=== PATIENT | male | born 1990 | race Caucasian/White ===

== ENCOUNTER 2019-02-20 23:32 | Inpatient (IN) | payer MEDICARE, MEDICAID ==
--- NOTE | 2019-02-20 23:52 | CT ---
CT head noncontrast HISTORY: Altered mental status. Stroke alert level 1. FINDINGS: A biconvex hyperdense fluid collection along the upper left lateral frontal calvarium measu res up to 0.9 cm depth. There is slight effacement of the underlying cerebral sulci. Mild diffuse sulcal effacement and effacement of the left lateral ventricle. No intraventricular hemorrhage is sanjiv dent. Visualized paranasal sinuses remain well aerated. IMPRESSION: Small acute left frontal subdural hematoma with mild diffuse cerebral edema. Findings were called to Dr. May in the emergency department at 2345 hours. Code CR.
[2019-02-21 00:10] LABS: #Basophils 0.1 thou/uL (0.0-0.2); #Eosinphils 0.4 thou/uL (0.0-0.7); #Lymphocytes 1.3 thou/uL (1.20-3.40); %Basophils 0.9 % (0.0-1.0); %Eosinophils 6.3 % (0.0-10.0); %Lymphocytes 19.3 % (21.0-51.0); %Monocytes 14.6 % (0.0-10.0); %Neutrophils 58.9 % (42.0-75.0); Hemoglobin 9.6 g/dL (14.0-18.0); Mean Corpuscular HGB CONC 33.2 g/dL (32.0-36.0); Mean Corpuscular Hemoglobin 31.2 pg (27.0-31.0); Mean Corpuscular Volume 94.1 fL (78.0-98.0); Mean Platelet Volume 8.2 fL (7.4-10.4); Platelet Count 152 thou/uL (130-400); RBC Distribution Width 14.3 % (11.5-14.5); Red Blood Cell (RBC) Count 3.06 mill/uL (4.70-6.10); White Blood Cell (WBC) Count 6.7 thou/uL (4.8-10.8)
[2019-02-21 00:19] LABS: INR-International Normal Ratio 1.2; PTT 32.7 SEC (22.9-36.1); Prothrombin Time 14.8 SEC (12.0-14.7)
[2019-02-21 00:32] LABS: ALT (SGPT) Less than 7 U/L (8-55); AST (SGOT) 8 U/L (5-34); Albumin 3.1 g/dL (3.5-5.0); Alkaline Phosphatase 53 U/L (40-110); Anion Gap 26 mmol/L (10-20); BUN (Urea Nitrogen) 112 mg/dL (8.9-20.6); Bilirubin, Total 0.4 mg/dL (0.2-1.2); CK (CPK) 119 U/L (30-200); Calc. Creatinine Clearance 0 mL/min (70-130); Calcium 7.6 mg/dL (7.8-10.44); Carbon Dioxide 22 mmol/L (22-29); Chloride 99 mmol/L (98-107); Estimated GFR-MDRD 3; Globulin 3.4 g/dL (2.4-3.5); Glucose 86 mg/dL (70-105); Protein, Total 6.5 g/dL (6.0-8.3); Sodium 142 mmol/L (136-145)
[2019-02-21] MEDS ORDERED: Labetalol HCl 100 MG/20 ML VIAL SLOW IVP SCH (01:00)
[2019-02-21] MEDS ORDERED: niCARdipine 25 MG in Sodium Chloride 0.9% 250 ML 240 ML IVPB SCH ×2 (01:00→02:48)
[2019-02-21] MEDS ORDERED: Bisacodyl 5 MG TAB PO PRN (02:57)
[2019-02-21] MEDS ORDERED: HYDROcodone/Acetaminophen 5/325 mg Tablet PO PRN (02:57)
[2019-02-21] MEDS ORDERED: Acetaminophen 325 MG TAB PO PRN (02:57)
[2019-02-21] MEDS ORDERED: Bisacodyl 10 MG SUPP PR PRN (02:57)
[2019-02-21 03:12] VITALS: BMI 27.1
[2019-02-21] MEDS ORDERED: CIPROFLOXACIN LACTATE IVPB SCH (04:00)
[2019-02-21] MEDS ORDERED: D5W IVPB SCH (04:00)
[2019-02-21 04:21] LABS: INR-International Normal Ratio 1.2; Prothrombin Time 15.1 SEC (12.0-14.7)
[2019-02-21 04:22] LABS: PTT 32.9 SEC (22.9-36.1)
--- NOTE | 2019-02-21 04:31 | PDOC.HHP ---
Hospitalist HPI - History of Present Illness Slurred speech, R sided weakness History of Present Illness: Patient is a 29 year old male with PMH of ESRD on peritoneal dialysis, recent tricuspid endocarditis completed ancef on who presents to hospital for acute right sided weakness and aphasia. patient father at beside reports symptoms began at 3pm w/ abnormal speech, jaw clenching and R sided weakness. He had TIA last year with different symptoms and recovered. he gets peritoneal dialysis, had recent dx of endocarditis (reportedy due to staph aureus) and has been in and out of many rehabs and hospitals lately, original treatment was at [facility] completed ancef on the , still has PICC in. 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 In ED, CT head revealed subdural hemorrhage, neurosurgery called and wanted admission for stroke workup and will follow in AM with repeat imaging. Hospitalist ROS - Review of Systems ROS unobtainable: due to mental status (altered, aphasic, non sensical speech) Hospitalist History - Past Medical History Other Medical History: ESRD IgA nephropathy peritoneal dialysis tricuspid endocarditis treated with ancef HTN - Past Surgical History Other Surgical History: PD cath - Family History Other Family History: reviewed, noncontributory - Social History Smoking Status: Never smoker Alcohol: reports: None Drugs: reports: none - Exam General Appearance: NAD, awake alert General - other findings: aphasic, nonsensical speech Eye: PERRL, anicteric sclera ENT: normocephalic atraumatic, moist mucosa ENT - other findings: slight R facial droop Neck: supple, no JVD Heart: RRR, no murmur, no gallops, no rubs Respiratory: CTAB, no wheezes, no rales, no ronchi Gastrointestinal: soft, non-tender, non-distended, normal bowel sounds Extremities: no cyanosis, no clubbing, no edema Skin: no lesions, no rashes Skin - other findings: PD cath and PICC in place with no erythema or edema at sites Neurological - other findings: R sided weakness and numbness, R facial droop, aphasia Psychiatric - other findings: unable to evaluate Hospitalist Results - Labs Result Diagrams: 02/20/19 00:00 02/20/19 00:00 Lab results: WBC 6.7 thou/uL (4.8-10.8) 02/20/19 00:00 Hgb 9.6 g/dL (14.0-18.0) L 02/20/19 00:00 Hct 28.8 % (42.0-52.0) L 02/20/19 00:00 MCV 94.1 fL (78.0-98.0) 02/20/19 00:00 Plt Count 152 thou/uL (130-400) 02/20/19 00:00 Neutrophils % 58.9 % (42.0-75.0) 02/20/19 00:00 Sodium 142 mmol/L (136-145) 02/20/19 00:00 Potassium 5.0 mmol/L (3.5-5.1) 02/20/19 00:00 Chloride 99 mmol/L (98-107) 02/20/19 00:00 Carbon Dioxide 22 mmol/L (22-29) 02/20/19 00:00 BUN 112 mg/dL (8.9-20.6) H 02/20/19 00:00 Creatinine 18.60 mg/dL (0.7-1.3) H 02/20/19 00:00 Glucose 86 mg/dL (70-105) 02/20/19 00:00 Calcium 7.6 mg/dL (7.8-10.44) L 02/20/19 00:00 Total Bilirubin 0.4 mg/dL (0.2-1.2) 02/20/19 00:00 AST 8 U/L (5-34) 02/20/19 00:00 ALT Less than 7 U/L (8-55) L 02/20/19 00:00 Alkaline Phosphatase 53 U/L (40-110) 02/20/19 00:00 Creatine Kinase 119 U/L (30-200) 02/20/19 00:00 Troponin I 0.022 ng/mL (< 0.028) 02/20/19 00:00 Serum Total Protein 6.5 g/dL (6.0-8.3) 02/20/19 00:00 Albumin 3.1 g/dL (3.5-5.0) L 02/20/19 00:00 Hospitalist H&P A/P - Plan Plan: Patient is a 29 year old male with PMH of ESRD on peritoneal dialysis, recent tricuspid endocarditis, HTN admitted for: # R sided weakness - has a subdural, neurosurgery consulted and unsure this is cause of sx, will look into infectious workup and neuologic workup and appreciate neurosurgery evaluation - admit to CCU - MRI brain - requested nurse call HD nurse to send some PD fluid for culture in AM - remove PICC and send tip for culture - follow up blood cultures, empiric vanc/cipro - appreciate consultants # ESRD on PD - normally in [place], does not live nearby - consult nephrology - rule out PD cath infection with fluid culture # subdural hematoma - treatment as above, serial imaging and NSG consult # HTN urgency - admit to CCU on nicardipine gtt, goal SBP 150 for first day thn perhaps can go even lower, consult critical care Dr Hernandez in AM
[2019-02-21 05:14] LABS: Cardiac Risk 3.7 (Less than 4.5)
[2019-02-21] MEDS ORDERED: Vancomycin HCl 1 GM in Premix Bag 1 BAG IVPB SCH ×2 (05:15→06:15)
[2019-02-21] MEDS ORDERED: Vancomycin HCl 750 MG in Sodium Chloride 0.9% 250 ML 250 ML IVPB SCH (06:15)
[2019-02-21] MEDS ORDERED: HOLD VANCOMYCIN FOR LEVEL >20 FS SCH (06:15)
[2019-02-21] MEDS ORDERED: Vancomycin Sliding Scale 1 EACH FS ONE (06:15)
[2019-02-21] MEDS ORDERED: Vancomycin HCl 1.25 GM in Sodium Chloride 0.9% 250 ML 250 ML IVPB SCH (06:15)
[2019-02-21] MEDS ORDERED: Vancomycin HCl 1.5 GM in Sodium Chloride 0.9% 250 ML 300 ML IVPB SCH (06:15)
[2019-02-21] MEDS ORDERED: cloNIDine 0.1 MG TAB PO PRN (07:10)
--- NOTE | 2019-02-21 08:07 | RAD ---
EXAM: Single view of the chest HISTORY: CVA and bilateral pneumonia COMPARISON: None FINDINGS: Single view of the chest shows an enlarged cardiomediastinal silhouette. A right IJ centra l venous catheter seen with its tip in the superior vena cava. Opacity seen in the right lung base which likely represents an infiltrate and adjacent pleural effusion. The bones are unremarkable. IMPRESSION: Right lower lobe pneumonia with adjacent pleural effusion.
[2019-02-21] MEDS: Montelukast Sodium 10 mg Tablet PO SCH (08:57)
[2019-02-21] MEDS: Metoprolol Tartrate 100 MG TAB PO SCH ×2 (08:57→20:07)
[2019-02-21] MEDS ORDERED: Non-Formulary Item 1 EACH (Sodium Bicarbonate [Sodium Bicarbonate] 650 MG) PO SCH (09:00)
[2019-02-21] MEDS ORDERED: LACTULOSE 10 GM/15 ML PO SCH (09:00)
[2019-02-21] MEDS ORDERED: Amlodipine 10 MG TAB PO SCH (09:00)
[2019-02-21] MEDS ORDERED: hydrALAZINE 25 MG TAB PO SCH ×2 (09:00)
[2019-02-21] MEDS ORDERED: NIFEdipine XL 30 MG TAB PO SCH ×2 (09:00)
[2019-02-21] MEDS ORDERED: Non-Formulary Item 1 EACH (Hydralazine Hcl [Hydralazine Hcl] 100 MG) PO SCH (09:00)
[2019-02-21] MEDS ORDERED: NIFEdipine XL 60 MG TAB PO SCH (09:00)
[2019-02-21] MEDS: Calcium Carbonate 600 MG TAB PO SCH (09:28)
[2019-02-21] MEDS: Docusate 100 MG CAP PO SCH ×2 (09:29→20:06)
--- NOTE | 2019-02-21 09:35 | MRI ---
PRELIMINARY REPORT/[facility]/EMERGENCY AFTER HOURS PROCEDURE: This report was discussed with Branden Amaya RN by Iqra Davila on Feb 21, 2019 06:06:00 FRAME CHANGER. Addendum electronically signed by Iqra Davila on February 21, 2019 6:06:33 AM FRAME CHANGER EXAM: MR Brain Without Intravenous Contrast. CLINICAL HISTORY: R/O STROKE. HX OF TIA TECHNIQUE: Magnetic resonance images of the brain without intravenous contrast in multiple planes. CONTRAST: Without COMPARISON: None provided. FINDINGS: BRAIN: There is acute left subdural hemorrhage measuring approximately 6 mm greatest in volume along the left posterior occipital convexity. Mild associated left parieto-occipital cerebral edema VENTRICLES: No hydrocephalus. ORBITS: The orbits are normal. SINUSES AND MASTOIDS: The sinuses and mastoid air cells are clear. BONES: No focal osseous lesion. IMPRESSION: 1. There is acute left subdural hemorrhage measuring approximately 6 mm greatest in volume along the left posterior occipital convexity. 2. Mild associated left parieto-occipital cerebral edema ELECTRONICALLY SIGNED BY: Edison Dillard M.D. Feb 21, 2019 5:56:41 AM FRAME CHANGER This report is intended for review by the ordering physician only, in accordance of law. If you recei ve this report in error, please call [facility] at [phone]. FINAL REPORT EMERGENCY AFTER HOURS MRI OF THE BRAIN WITHOUT CONTRAST: FINDINGS/IMPRESSION: I agree with the findings and impression given in the preliminary report per [facility] physici an. There is a small left parietal subdural hemorrhage, as above.
--- NOTE | 2019-02-21 09:38 | CON ---
DATE OF CONSULTATION: This is Lori Chamberlain PA-C dictating a report for Kayode Jackson MD. HISTORY OF PRESENT ILLNESS: The patient is a 29-year-old male with a complicated medical history including end-stage renal disease from a history of IgA nephropathy. On peritoneal dialysis, currently being treated for endocarditis with a PICC line, history of prior TIAs, who is currently in rehab after his treatments for endocarditis, who presented to the emergency department per EMS after developing some slurred speech and right-sided weakness. No history of trauma was reported. The patient had a noncontrast CT head on arrival, which was notable for a small left-sided parieto-occipital acute subdural hematoma with only mild mass effect. The patient is not on any anticoagulants and his platelets are normal at 152. His INR is 1.2. His PT is slightly elevated at 15.1. Neurosurgery was consulted for further evaluation of this acute subdural. This seemed to be a rather unusual course for the small subdural hematoma and considering his significant ongoing medical issues, we asked for additional medical evaluation and MRI of the brain. MRI of the brain was done, which showed again a left-sided acute subdural hematoma approximately 6 mm along the left posterior occipital region. There is mild parieto-occipital edema associated with subdural. No acute ischemic infarcts are noted. PAST MEDICAL HISTORY: End-stage renal disease, on peritoneal dialysis; IgM nephropathy; prior TIAs; CHF; endocarditis; and recent treatment for pneumonia. PAST SURGICAL HISTORY: Dialysis catheter. SOCIAL HISTORY: The patient currently resides at rehab. CURRENT ALLERGY LIST: Sulfa, penicillin, latex, and contrast dye. REVIEW OF SYSTEMS: Unobtainable. PHYSICAL EXAMINATION: VITAL SIGNS: The patient is afebrile. His most recent blood pressure is 157/94 , heart rate is 115, and the patient is 96% on room air. CONSTITUTIONAL: The patient is resting on arrival to the ICU. He awakens easily. He is able to tell me his name and location. HEENT: Eyes; PERRLA. Extraocular movements intact. ENT; oral mucosa is pink, intact, and moist. He has somewhat slurred speech, dysarthria. NECK: Nontender to palpation. Free active range of motion. RESPIRATORY: Symmetric chest expansion. No evidence of dyspnea. CARDIOVASCULAR: Mildly tachycardic, but regular rhythm. MUSCULOSKELETAL: No obvious deformities. Symmetric pulses. He appears to have subtle decreased strength in the right upper and lower extremity. NEUROLOGIC: Oriented to person and place. His speech is slurred. He has some subtle weakness in the right upper and right lower extremity. Some intermittent twitching is in the right hand, this was also seen. ASSESSMENT AND PLAN: This is a 29-year-old male with a complicated medical history, who presents for new and worsening speech dysarthria as well as some right-sided weakness, then occasional intermittent hand twitching with noncontrast CT and MRI is notable for acute left parieto-occipital subdural hematoma. The acute subdural hematoma is small, but is there is some surrounding vasogenic edema, which may be contributing to the patient's condition. He is also noted to have some intermittent twitching per the ER nursing staff of the right hand, which may suggest intermittent focal seizures. I will consult neurology for an opinion. I will discuss the imaging findings as well as exam findings with Dr. Jackson, who will also see the patient this morning. Job ID: [id number] [facility]
[2019-02-21] MEDS: Sodium Bicarbonate Tab 325 MG TAB PO SCH ×2 (09:41→20:07)
[2019-02-21] MEDS: Polyethylene Glycol 3350 17 GM Packet PO SCH (09:41)
[2019-02-21] MEDS: Tamsulosin HCl 0.4 MG CAP PO SCH (09:41)
--- NOTE | 2019-02-21 10:45 | PDOC.HOSPP ---
- Subjective Encounter Date: 02/21/19 Encounter Time: 10:30 Subjective: pt has focal seizure, father bedside, able to provide history - Objective Vital Signs & Weight: Vital Signs (12 hours) Temp Pulse Ox 02/21/19 08:00 95 02/21/19 07:00 98.6 F 02/21/19 05:00 97.9 F 02/21/19 03:00 98.8 F Weight Weight 229 lb 4.492 oz Most Recent Monitor Data Heart Rate from ECG 76 NIBP 160/103 NIBP BP-Mean 122 Respiration from ECG 16 SpO2 94 I&O: 02/20/19 02/21/19 02/22/19 06:59 06:59 06:59 Intake Total 579 245 Output Total 0 Balance 579 245 Result Diagrams: 02/20/19 00:00 02/20/19 00:00 Additional Labs: Accuchecks 02/20/19 23:42 POC Glucose 105 Radiology Reviewed by me: Yes EKG Reviewed by me: Yes Hospitalist ROS - Review of Systems Constitutional: denies: fever, chills, sweats, weakness, malaise, other ENT: denies: ear pain, ear discharge, nose pain, nose discharge, nose congestion , mouth pain, mouth swelling, throat pain, throat swelling, other Respiratory: denies: cough, dry, shortness of breath, hemoptysis, SOB with excertion, pleuritic pain, sputum, wheezing, other Cardiovascular: denies: chest pain, palpitations, orthopnea, paroxysmal noc. dyspnea, edema, light headedness, other Gastrointestinal: denies: nausea, vomiting, abdominal pain, diarrhea, constipation, melena, hematochezia, other Genitourinary: denies: dysuria, frequency, incontinence, hematuria, retention, other Musculoskeletal: denies: neck pain, shoulder pain, arm pain, back pain, hand pain, leg pain, foot pain, other Skin: denies: rash, lesions, brayan, bruising, other Neurological: reports: weakness, change in speech, seizures. denies: numbness, incoordination, confusion, other - Medication Medications: Active Medications Generic Name Dose Route Start Last Admin Trade Name Freq PRN Reason Stop Dose Admin Calcium Carbonate 600 mg 02/21/19 09:00 02/21/19 09:28 Caltrate PO Not Given DAILY MIO Docusate Sodium 100 mg 02/21/19 09:00 02/21/19 09:29 Colace PO Not Given BID [facility] Hydralazine HCl 50 mg 02/21/19 09:00 02/21/19 09:29 Apresoline PO Not Given TID [facility] Nicardipine HCl 25 mg/ Sodium 250 mls @ 0 mls/hr 02/21/19 02:48 02/21/19 06: 00 Chloride IVPB 250 mls INF MIO Administration Protocol Titrate Levetiracetam 500 mg/ Device 100 mls @ 200 mls/hr 02/21/19 09:00 02/21/19 08: 36 IVPB 100 mls BID MIO Administration Lactulose 10 gm 02/21/19 09:00 02/21/19 09:33 Lactulose PO Not Given DAILY [facility] Metoprolol Tartrate 100 mg 02/21/19 09:00 02/21/19 08:57 Lopressor PO 100 mg BID MIO Administration Montelukast Sodium 10 mg 02/21/19 09:00 02/21/19 08:57 Singulair PO 10 mg DAILY MIO Administration Nifedipine 60 mg 02/21/19 09:00 02/21/19 09:34 Procardia Xl PO 60 mg DAILY MIO Administration Nifedipine 30 mg 02/21/19 09:00 02/21/19 09:34 Procardia Xl PO 02/21/19 11:00 30 mg NOW [facility] Administration Polyethylene Glycol 17 gm 02/21/19 09:00 02/21/19 09:41 Miralax PO Not Given DAILY [facility] Sertraline HCl 100 mg 02/21/19 09:00 02/21/19 08:58 Zoloft PO 100 mg DAILY [facility] Administration Sodium Bicarbonate 650 mg 02/21/19 09:00 02/21/19 09:41 Bicarbonate, Sodium PO Not Given BID [facility] Tamsulosin HCl 0.8 mg 02/21/19 09:00 02/21/19 09:41 Flomax PO Not Given DAILY [facility] - Exam General Appearance: NAD, awake alert Eye: PERRL, anicteric sclera ENT: normocephalic atraumatic, no oropharyngeal lesions Neck: supple, symmetric, no JVD, no thyromegaly Heart: RRR, no murmur, no gallops, no rubs Respiratory: CTAB, no wheezes, no rales, no ronchi Gastrointestinal: soft, non-tender, non-distended, normal bowel sounds Gastrointestinal - other findings: PD catheter + Extremities: no cyanosis, no clubbing, 2+ LE edema Skin: normal turgor, no lesions Neurological - other findings: weakness on right side, focal seizure Hosp A/P (1) Encephalopathy acute Code(s): G93.40 - ENCEPHALOPATHY, UNSPECIFIED Status: Acute (2) Focal seizures Status: Acute (3) Subdural hematoma Code(s): S06.5X9A - TRAUM SUBDR HEM W LOC OF UNSP DURATION, INIT Status: Acute Plan: left subdural hematolma (4) Cerebral edema Code(s): G93.6 - CEREBRAL EDEMA Status: Acute Plan: left parietooccipital edema, mild (5) ESRD on peritoneal dialysis Code(s): N18.6 - END STAGE RENAL DISEASE; Z99.2 - DEPENDENCE ON RENAL DIALYSIS Status: Chronic (6) IgM nephropathy Code(s): N05.8 - UNSP NEPHRITIC SYNDROME WITH OTHER MORPHOLOGIC CHANGES Status : Chronic (7) H/O endocarditis Code(s): Z86.79 - PERSONAL HISTORY OF OTHER DISEASES OF THE CIRCULATORY SYSTEM Status: Chronic (8) Anemia of renal disease Code(s): N18.9 - CHRONIC KIDNEY DISEASE, UNSPECIFIED; D63.1 - ANEMIA IN CHRONIC KIDNEY DISEASE Status: Chronic (9) Secondary hyperparathyroidism of renal origin Code(s): N25.81 - SECONDARY HYPERPARATHYROIDISM OF RENAL ORIGIN Status: Chronic (10) Anxiety and depression Code(s): F41.9 - ANXIETY DISORDER, UNSPECIFIED; F32.9 - MAJOR DEPRESSIVE DISORDER, SINGLE EPISODE, UNSPECIFIED Status: Chronic - Plan old records reviewed/req, plan discussed w/ family 02/21/19 neurology and neurosurgery consulted nephrology consulted his home medication reconciled updated with father medication reviewed and continue to provide supportive care DC antibiotic for now get echo follow on culture result will get eeg
--- NOTE | 2019-02-21 10:48 | CON ---
DATE OF CONSULTATION: 02/21/2019 The patient was seen and examined, I agree with Lori Chamberlain's evaluation on 02/21/2019. The patient is a 29-year-old man with end-stage renal disease, a history of prior endocarditis and TIAs, who presented with 24 hours of slurred speech and right arm twitching. CT and MRI have not revealed definitive pathology, but do reveal a small left acute subdural. The patient's slurred speech seems to be improving and the degree of twitching has diminished significantly on Keppra. IMPRESSION AND PLAN: The overall etiology of the patient's new symptoms is unclear. He does have a new subdural hematoma, but is quite tiny and does not warrant surgical evacuation. The MRI was not done with contrast, so there remains a possibility that this could represent empyema, but this seems very unlikely in this clinical setting given his recent improvement. It is possible that all of his symptoms are postictal referable to seizure activity. We will get an opinion from Neurology and continue to treat expectantly. Discussed with the patient and father. Job ID: [id number]
--- NOTE | 2019-02-21 11:46 | CON ---
DATE OF CONSULTATION: 02/21/2019 CONSULTING PHYSICIAN: Hospitalist Service. IMPRESSION: Acute left subdural hematoma with some secondary cortical edema versus ischemia. PLAN: 1. Continue current blood pressure management. 2. Echocardiogram. HISTORY OF PRESENT ILLNESS: Mr. Orozco is a 29-year-old man with a past history of renal failure, on peritoneal dialysis. He recently had tricuspid endocarditis and completed a 6-week antibiotic regimen. Two days ago, he presented with acute onset of right-sided weakness and speech difficulty. He has been witnessed to have some focal seizure activity on the right side. He has been started on Keppra. His MRI of the brain showed a 6-mm subdural hematoma. Neurosurgery did not feel it warranted surgical intervention. He still is complaining of difficulty with speech output and right-sided weakness. He was on a Cardene drip transiently, but now is off it. His diastolics are running in the mid 90s. He has no other particular complaints. PAST MEDICAL HISTORY: As listed above. ALLERGIES: IODINE, ASPIRIN, PENICILLIN, SULFA, AMONG OTHERS. FAMILY HISTORY: Noncontributory. SOCIAL HISTORY: Negative for drug use. MEDICATIONS: List reviewed. REVIEW OF SYSTEMS: Ten-system review of systems is otherwise negative. PHYSICAL EXAMINATION: GENERAL: He is a well-nourished young man, lying in bed, in no acute distress. VITAL SIGNS: Blood pressure 164/96; pulse 75, in a sinus rhythm; saturations 97%; and respirations 10. HEENT: Pupils are equal and reactive. Conjunctivae are clear. Oropharynx clear. NECK: Supple. EXTREMITIES: No cyanosis or edema. NEUROLOGIC: He was alert and cooperative. His speech was clear, but had a pausing quality between words. Cranial nerve exam did not show any facial asymmetry or sensory loss. He had diminished strength at the right arm and hand. He had antigravity strength in the right leg. Sensation was intact. Gait was not tested. No abnormal movements were seen. SUMMARY: A 29-year-old man with acute subdural hematoma and diffuse abnormal diffusion in the left parietal region as well. He has had some secondary seizures. I agree with continuing Keppra given the hemorrhage. He is not a candidate for any type of antiplatelet therapy. Hopefully, things will settle down with time. Job ID: [id number]
[2019-02-21] MEDS ORDERED: Desmopressin Acetate 4 mcg/ml (1ml Chg) 10ml Vial SC SCH (12:30)
[2019-02-21] MEDS: Labetalol HCl 100 MG/20 ML VIAL SLOW IVP PRN ×2 (13:48→20:53)
[2019-02-21] MEDS: hydrALAZINE 25 MG TAB PO SCH ×2 (15:32→20:06)
--- NOTE | 2019-02-21 17:24 | CON ---
DATE OF CONSULTATION: 02/21/2019 SERVICE: Pulmonary Medicine. REASON FOR CONSULTATION: ICU patient. HISTORY OF PRESENT ILLNESS: The patient is a 29-year-old white male with past medical history significant for end-stage renal disease secondary to IgA nephropathy. He was in his usual state of health when he had an abrupt onset of neurologic changes that was discovered to represent a subdural hematoma with compression of the appose parietal brain. He is being watched in the ICU, so that we can monitor his neurologic status closely. He denies any current fevers, chills, nausea, or vomiting. There is no precipitating event here otherwise. Recently , he had a bout of endocarditis. He has actually completed his antibiotics based on his recollection. He denies any fevers, chills, nausea, vomiting, or diarrhea. Otherwise, he is in his usual state of health. He is a little bit sleepy today. PHYSICAL EXAMINATION: VITAL SIGNS: Afebrile, pulse 74, blood pressure 145/83, respirations 18, and saturation 94% on room air. GENERAL: The patient is awake and alert, in no apparent distress LUNGS: Very good air entry. No prolonged expiratory phase or wheezing is appreciated. HEART: Normal rate. Regular. ABDOMEN: Soft, nontender, and nondistended. Bowel sounds are positive. MUSCULOSKELETAL: No cyanosis or clubbing. There is 1 to 2+ pitting in the bilateral lower extremities. NEUROLOGIC: He has a little somnolence. He has weakness of the right upper extremity, but moves his bilateral lower extremities, and left upper extremity without difficulty. Speech is normal. LABORATORY DATA: WBC 6.7, hemoglobin 9.6, and platelets 152,000. INR 1.2. BUN 112. Basic metabolic profile is otherwise unremarkable. Liver function studies are normal. Troponin is negative. IMAGIN. Chest x-ray demonstrates a right lower lobe pleural-parenchymal abnormality. 2. CT brain demonstrates a subdural hematoma. 3. MRI confirms an acute subdural hematoma, with mass effect on the temporoparietal region. ASSESSMENT: 1. Subdural hematoma. 2. End-stage renal disease secondary to IgA nephropathy. 3. Abnormal chest x-ray. DISCUSSION AND PLAN: I will repeat a chest x-ray tomorrow morning. We will continue neuro checks frequently. If these remain stable, he can be considered for transition out of the ICU to the neuro unit. Because of his elevated BUN, I will give him a dose of DDAVP. Critical Care will follow in this location. 70 minutes have been devoted to this patient in various activities. I personally reviewed all imaging studies and laboratory data noted within this document. For fifty percent of this time, I was interacting with the patient at the bedside or coordinating care with the care team. For the remainder of the time I was immediately available to the patient in the hospital unit. Job ID: [id number] [facility]
[2019-02-21 19:45] LABS: RBC Count-Automated (BF) 543 /cumm; WBC/Nucleated-Auto (BF) 314 uL
[2019-02-21 20:04] LABS: BF Color Yellow; Body Fluid Source Peritoneal Fluid; Clarity Hazy (Clear); Tube # EDTA
[2019-02-21] MEDS: Atorvastatin Calcium 40 MG TAB PO SCH (20:06)
[2019-02-21 20:08] LABS: BF Segmented Neutrophils 5 %; Cell Count Non Hematic 55 %; Eosinophils 1 %; Lymphocytes 39 %
[2019-02-22] MEDS: Labetalol HCl 100 MG/20 ML VIAL SLOW IVP PRN ×2 (00:56→04:31)
[2019-02-22] MEDS: hydrALAZINE 20 MG/ML VIAL SLOW IVP PRN (01:03)
[2019-02-22] MEDS: cloNIDine 0.1 MG TAB PO PRN ×3 (01:04→22:33)
[2019-02-22 05:08] LABS: #Eosinphils 0.4 thou/uL (0.0-0.7); #Lymphocytes 1.1 thou/uL (1.20-3.40); #Monocytes 0.8 thou/uL (0.11-0.59); #Neutrophils 4.1 thou/uL (1.40-6.50); %Basophils 0.6 % (0.0-1.0); %Eosinophils 5.7 % (0.0-10.0); %Lymphocytes 16.6 % (21.0-51.0); %Monocytes 13.2 % (0.0-10.0); %Neutrophils 63.9 % (42.0-75.0); Hemoglobin 8.4 g/dL (14.0-18.0); Mean Corpuscular Hemoglobin 31.1 pg (27.0-31.0); Mean Corpuscular Volume 94.3 fL (78.0-98.0); Mean Platelet Volume 7.9 fL (7.4-10.4); Platelet Count 149 thou/uL (130-400); RBC Distribution Width 14.3 % (11.5-14.5); White Blood Cell (WBC) Count 6.4 thou/uL (4.8-10.8)
[2019-02-22 05:19] LABS: ALT (SGPT) Less than 7 U/L (8-55); AST (SGOT) 7 U/L (5-34); Albumin 2.8 g/dL (3.5-5.0); Alkaline Phosphatase 44 U/L (40-110); Anion Gap 26 mmol/L (10-20); BUN (Urea Nitrogen) 115 mg/dL (8.9-20.6); Bilirubin, Total 0.5 mg/dL (0.2-1.2); Calc. Creatinine Clearance 9 mL/min (70-130); Calcium 7.2 mg/dL (7.8-10.44); Carbon Dioxide 21 mmol/L (22-29); Chloride 101 mmol/L (98-107); Estimated GFR-MDRD 3; Globulin 3.1 g/dL (2.4-3.5); Glucose 93 mg/dL (70-105); Potassium 4.5 mmol/L (3.5-5.1); Protein, Total 5.9 g/dL (6.0-8.3); Sodium 143 mmol/L (136-145)
[2019-02-22 05:20] LABS: Phosphorus 14.6 mg/dL (2.3-4.7)
[2019-02-22 08:10] LABS: Iron 96 ug/dL (65-175); Iron Binding Capacity, Total 174 mcg/dL (261-462)
[2019-02-22] MEDS: Calcium Carbonate 600 MG TAB PO SCH (09:11)
[2019-02-22] MEDS: Calcium Acetate 667 MG CAP PO SCH ×3 (09:11→17:00)
[2019-02-22] MEDS: hydrALAZINE 25 MG TAB PO SCH ×3 (09:12→20:54)
[2019-02-22] MEDS: Docusate 100 MG CAP PO SCH ×2 (09:12→20:54)
[2019-02-22] MEDS: Polyethylene Glycol 3350 17 GM Packet PO SCH (09:13)
[2019-02-22] MEDS: Metoprolol Tartrate 100 MG TAB PO SCH ×2 (09:13→20:54)
[2019-02-22] MEDS: Tamsulosin HCl 0.4 MG CAP PO SCH (09:13)
[2019-02-22] MEDS: Montelukast Sodium 10 mg Tablet PO SCH (09:13)
[2019-02-22] MEDS: Sodium Bicarbonate Tab 325 MG TAB PO SCH ×2 (09:17→20:53)
--- NOTE | 2019-02-22 09:29 | PRG ---
DATE OF SERVICE: 02/22/2019 SUBJECTIVE: The patient is seen and examined yesterday for acute left subdural hematoma and likely underlying seizure activity. He was treated with Keppra, and he is significantly improved today. The patient has had no overnight events. He did have an MRI, which confirmed a small underlying left subdural hematoma. OBJECTIVE: On exam, the patient is awake, alert, oriented x3. He has free active range of motion of all extremities. No focal motor weakness or neurologic deficits are appreciated. He is no longer having any twitching activity. ASSESSMENT AND PLAN: The patient is significantly improved following the addition of seizure medications. We have no plans for acute surgical intervention for the small subdural hematoma. At this point, the patient appears appropriate for transition to the floor. We will plan to follow up with the patient in approximately 4 weeks in the outpatient setting. Job ID: [id number]
--- NOTE | 2019-02-22 09:54 | PRG ---
DATE OF SERVICE: 02/22/2019 SUBJECTIVE: A 29-year-old male with known history of end-stage renal disease secondary to IgA nephropathy, who was admitted due to acute onset of slurred speech, expressive aphasia, and right arm weakness. Nephrology is following patient for end-stage renal disease management. The patient was found to have subdural hematoma as well as cerebral edema and seizure, hence was started on Keppra. Expressive aphasia and involuntary movement of right upper extremity have improved. He, however, complains of numbness of right hand. He denied nausea, vomiting, headache, or shortness of breath. Bilateral leg edema has improved with peritoneal dialysis last night. OBJECTIVE: VITAL SIGNS: Temperature 98.3, pulse 81, respiratory rate 11, SpO2 97 on room air, blood pressure is 155/105. GENERAL: Young male, in no distress. Afebrile. Anicteric. Acyanotic. HEENT: Normocephalic and atraumatic. Oral mucosa is moist. CARDIOVASCULAR: Regular rhythm and rate with normal heart sounds 1 and 2. RESPIRATORY: Good air entry bilaterally with few transmitted breath sounds, but no obvious crackles or rhonchi or use of accessory muscles. GI: Full, soft, nontender, nondistended with normal bowel sounds. PD catheter noted. EXTREMITIES: Trace bilateral leg edema noted. No erythema appreciated. MANAGER OF BUSINESS: Conscious and alert oriented x3 with appropriate mental status. Cranial nerves 2 through 12 are grossly intact. The patient moves all extremities. Some subjective decreased sensation of right upper limb noted. Power is grossly normal and symmetric. LABORATORY DATA: CBC showed WBC count of 6.4, hemoglobin of 8.4, MCV of 94.3, platelets of 149. Renal, CMP showed sodium 143, potassium 4.5, chloride 101, CO2 21, BUN 115, creatinine 18.56, calcium 7.2. Total bilirubin 0.5, AST 7, ALT less than 7, total protein 5.9, albumin 2.8, globulin 3.1. Phosphorus is 14.6. PTH intact is 365. 25-vitamin D is 14.9. Iron chemistry showed iron 96, TIBC 174, saturation 55, and ferritin 415. ASSESSMENT: 1. End-stage renal disease, on peritoneal dialysis. The patient clearly is under dialyzed with marked azotemia with BUN of 115 and creatinine of 18. Subdural hematoma and cerebellar edema may be related to uremic coagulopathy. The patient received DDAVP yesterday. 2. Marked azotemia/uremia. 3. Anemia in chronic kidney disease. 4. Vitamin D deficiency. 5. Secondary hyperparathyroidism. 6. Hyperphosphatemia, most likely due to dietary indiscretion, inadequate dialysis, and maybe noncompliance with phosphate binder. 7. Subdural hematoma. Etiology is unclear. There is no overt trauma. Uremic encephalopathy may be contributory. 8. Partial seizures, most likely related to cerebral edema and subdural hematoma. PLAN: 1. We will provide continuous peritoneal dialysis treatment today with a view to improving clearance. However, if this failed to improve clearance, we may have to reset to hemodialysis. 2. We will increase nifedipine to 90 mg p.o. daily to get better blood pressure control. 3. We will start erythrocyte stimulating agent as patient has anemia in chronic kidney disease and there is no overt iron deficiency. 4. We will also start vitamin D supplementation and Sensipar. 5. Phosphate binder and Renvela will be commenced as well. 6. Keppra has been dosed renally. Many thanks. We will continue to follow along with you. I have discussed extensively with this patient on need to do continuous peritoneal dialysis today and he verbalized understanding and is in agreement. The patient can be moved out of the ICU from Nephrology point of view. Job ID: [id number]
--- NOTE | 2019-02-22 11:58 | PRG ---
DATE OF SERVICE: 02/22/2019 SERVICE: Pulmonary Medicine. INTERVAL HISTORY: The patient is doing really well from respiratory standpoint. His right upper extremity neurologic changes have improved dramatically. He is able to open and close his hand well. His sensation is still lacking, however. Otherwise, there has been no interval change to his condition. PHYSICAL EXAMINATION: VITAL SIGNS: Afebrile; pulse 77; blood pressure 162/106; respirations 14; and saturation 98%, currently on room air. GENERAL: The patient is awake and alert, in no apparent distress. LUNGS: Very good air entry. Dependent crackles are noted. HEART: Normal rate and regular. ABDOMEN: Soft, nontender, nondistended. Bowel sounds are positive. MUSCULOSKELETAL: No cyanosis or clubbing. There is trace to 1+ pitting in the bilateral lower extremities. NEUROLOGIC: Grossly nonfocal. LABORATORY DATA: WBC 6.4, hemoglobin 8.4, platelets 149,000. INR 1.2. Parathyroid hormone 365, vitamin D 14. Ferritin 415, iron 96, total iron-binding capacity is reduced. Phosphorus 14.6. BUN and creatinine remain extremely elevated. Anion gap 26, bicarb 21. Liver function studies are otherwise unremarkable. Peritoneal fluid has very few neutrophils. Blood cultures negative x1. Body fluid cultures negative to date. ASSESSMENT: 1. Subdural hematoma. 2. End-stage renal disease secondary to IgA nephropathy. 3. Abnormal chest x-ray. DISCUSSION AND PLAN: The patient is on continuous peritoneal dialysis and cannot go down for a two-view chest x-ray until this has been completed. We will postpone the two-view chest x-ray until tomorrow morning. Pulmonary will continue to follow for the time being. Job ID: [id number]
--- NOTE | 2019-02-22 12:34 | PDOC.HOSPP ---
- Subjective Encounter Date: 02/22/19 Encounter Time: 11:00 Subjective: Patient seen and examined. No new complaints. No overnight events - Objective Vital Signs & Weight: Vital Signs (12 hours) Temp Pulse BP Pulse Ox 02/22/19 09:12 173/109 H 02/22/19 07:57 97 02/22/19 07:07 173/109 H 02/22/19 07:00 98.3 F 02/22/19 04:31 164/105 H 02/22/19 04:00 98.4 F 02/22/19 01:04 164/105 H 02/22/19 01:03 78 164/105 H Weight Admit Weight 229 lb 4.492 oz Weight 229 lb 4.492 oz Most Recent Monitor Data Heart Rate from ECG 78 NIBP 145/96 NIBP BP-Mean 112 Respiration from ECG 2 SpO2 95 I&O: 02/21/19 02/22/19 02/23/19 06:59 06:59 06:59 Intake Total 579 630 235 Output Total 0 450 Balance 579 180 235 Result Diagrams: 02/22/19 04:39 02/22/19 04:39 Radiology Reviewed by me: Yes EKG Reviewed by me: Yes Hospitalist ROS - Review of Systems Constitutional: denies: fever, chills, sweats, weakness, malaise, other Eyes: denies: pain, vision change, conjunctivae inflammation, eyelid inflammation, redness, other ENT: denies: ear pain, ear discharge, nose pain, nose discharge, nose congestion , mouth pain, mouth swelling, throat pain, throat swelling, other Respiratory: denies: cough, dry, shortness of breath, hemoptysis, SOB with excertion, pleuritic pain, sputum, wheezing, other Cardiovascular: denies: chest pain, palpitations, orthopnea, paroxysmal noc. dyspnea, edema, light headedness, other Gastrointestinal: denies: nausea, vomiting, abdominal pain, diarrhea, constipation, melena, hematochezia, other Genitourinary: denies: dysuria, frequency, incontinence, hematuria, retention, other Musculoskeletal: denies: neck pain, shoulder pain, arm pain, back pain, hand pain, leg pain, foot pain, other - Medication Medications: Active Medications Generic Name Dose Route Start Last Admin Trade Name Freq PRN Reason Stop Dose Admin Atorvastatin Calcium 40 mg 02/21/19:00 02/21/19 20:06 Lipitor PO 40 mg HS MIO Administration Calcium Acetate 1,334 mg 02/22/19 08:00 02/22/19 12:15 Phoslo PO 1,334 mg TID-WM MOI Administration Calcium Carbonate 600 mg 02/21/19 09:00 02/22/19 09:11 Caltrate PO 600 mg DAILY MIO Administration Clonidine 0.1 mg 02/21/19 23:00 02/22/19 07:07 Catapres PO 0.1 mg TIDPRN PRN Administration TO KEEP SBP < 150 Docusate Sodium 100 mg 02/21/19 09:00 02/22/19 09:12 Colace PO 100 mg BID MIO Administration Hydralazine HCl 20 mg 02/21/19 12:24 02/22/19 01:03 Apresoline SLOW IVP 20 mg Q15MIN PRN Administration Sbp Greater Than 150 Hydralazine HCl 75 mg 02/21/19 15:00 02/22/19 09:12 Apresoline PO 75 mg TID MIO Administration Levetiracetam 500 mg/ Device 100 mls @ 200 mls/hr 02/22/19 09:00 02/22/19 09: 14 IVPB 100 mls DAILY MIO Administration Labetalol HCl 20 mg 02/21/19 12:24 02/22/19 04:31 Normodyne SLOW IVP 20 mg Q15MIN PRN Administration Sbp Greater Than 150 Lactulose 10 gm 02/21/19 09:00 02/22/19 09:13 Lactulose PO Not Given DAILY MIO Metoprolol Tartrate 100 mg 02/21/19 09:00 02/22/19 09:13 Lopressor PO 100 mg BID MIO Administration Montelukast Sodium 10 mg 02/21/19 09:00 02/22/19 09:13 Singulair PO 10 mg DAILY MIO Administration Polyethylene Glycol 17 gm 02/21/19 09:00 02/22/19 09:13 Miralax PO Not Given DAILY MIO Sertraline HCl 100 mg 02/21/19 09:00 02/22/19 09:12 Zoloft PO 100 mg DAILY MIO Administration Sodium Bicarbonate 650 mg 02/21/19 09:00 02/22/19 09:17 Bicarbonate, Sodium PO 650 mg BID MIO Administration Tamsulosin HCl 0.8 mg 02/21/19 09:00 02/22/19 09:13 Flomax PO 0.8 mg DAILY MIO Administration - Exam General Appearance: NAD, awake alert Eye: PERRL, anicteric sclera ENT: normocephalic atraumatic, no oropharyngeal lesions Neck: supple, symmetric, no JVD, no thyromegaly Heart: RRR, no murmur, no gallops, no rubs Respiratory: CTAB, no wheezes, no rales, no ronchi Gastrointestinal: soft, non-tender, non-distended, normal bowel sounds, no palpable masses Extremities: no cyanosis, no clubbing, 1+ LE edema Skin: normal turgor, no lesions Neurological: no focal deficits Musculoskeletal: normal tone, normal strength Psychiatric: normal affect, normal behavior, A&O x 3 Hosp A/P (1) Encephalopathy acute Code(s): G93.40 - ENCEPHALOPATHY, UNSPECIFIED Status: Acute (2) Focal seizures Status: Acute (3) Subdural hematoma Code(s): S06.5X9A - TRAUM SUBDR HEM W LOC OF UNSP DURATION, INIT Status: Acute (4) Cerebral edema Code(s): G93.6 - CEREBRAL EDEMA Status: Acute (5) ESRD on peritoneal dialysis Code(s): N18.6 - END STAGE RENAL DISEASE; Z99.2 - DEPENDENCE ON RENAL DIALYSIS Status: Chronic (6) IgM nephropathy Code(s): N05.8 - UNSP NEPHRITIC SYNDROME WITH OTHER MORPHOLOGIC CHANGES Status : Chronic (7) H/O endocarditis Code(s): Z86.79 - PERSONAL HISTORY OF OTHER DISEASES OF THE CIRCULATORY SYSTEM Status: Chronic (8) Anemia of renal disease Code(s): N18.9 - CHRONIC KIDNEY DISEASE, UNSPECIFIED; D63.1 - ANEMIA IN CHRONIC KIDNEY DISEASE Status: Chronic (9) Secondary hyperparathyroidism of renal origin Code(s): N25.81 - SECONDARY HYPERPARATHYROIDISM OF RENAL ORIGIN Status: Chronic (10) Anxiety and depression Code(s): F41.9 - ANXIETY DISORDER, UNSPECIFIED; F32.9 - MAJOR DEPRESSIVE DISORDER, SINGLE EPISODE, UNSPECIFIED Status: Chronic - Plan old records reviewed/req 02/21/19 neurology and neurosurgery consulted nephrology consulted his home medication reconciled updated with father medication reviewed and continue to provide supportive care DC antibiotic for now get echo follow on culture result will get eeg 02/22/19 transfer to stroke floor neurology and neurosurgery recommendation noted overall stable continue PD as per nephrology jose galloway
[2019-02-22] MEDS ORDERED: Sevelamer Carbonate 800 MG TAB PO SCH (17:45)
[2019-02-22] MEDS ORDERED: NIFEdipine XL 30 MG TAB PO SCH (17:45)
[2019-02-22] MEDS: ALPRAZolam 0.25 MG TAB PO PRN (20:53)
[2019-02-22] MEDS: Atorvastatin Calcium 40 MG TAB PO SCH (20:54)
[2019-02-23] MEDS: hydrALAZINE 20 MG/ML VIAL SLOW IVP PRN ×5 (00:23→11:24)
[2019-02-23] MEDS: Labetalol HCl 100 MG/20 ML VIAL SLOW IVP PRN ×6 (01:13→10:02)
[2019-02-23] MEDS: cloNIDine 0.2 MG TAB PO PRN ×2 (04:28→15:30)
[2019-02-23] MEDS ORDERED: Labetalol 100 MG TAB PO SCH ×3 (06:00→13:30)
[2019-02-23 06:24] LABS: #Eosinphils 0.3 thou/uL (0.0-0.7); #Monocytes 0.7 thou/uL (0.11-0.59); #Neutrophils 3.6 thou/uL (1.40-6.50); %Basophils 0.5 % (0.0-1.0); %Eosinophils 4.9 % (0.0-10.0); %Lymphocytes 17.4 % (21.0-51.0); %Monocytes 12.4 % (0.0-10.0); %Neutrophils 64.8 % (42.0-75.0); Hemoglobin 8.4 g/dL (14.0-18.0); Mean Corpuscular HGB CONC 33.2 g/dL (32.0-36.0); Mean Corpuscular Hemoglobin 31.1 pg (27.0-31.0); Mean Corpuscular Volume 93.7 fL (78.0-98.0); Mean Platelet Volume 8.2 fL (7.4-10.4); Platelet Count 155 thou/uL (130-400); RBC Distribution Width 13.9 % (11.5-14.5); White Blood Cell (WBC) Count 5.6 thou/uL (4.8-10.8)
[2019-02-23 06:38] LABS: Albumin 2.9 g/dL (3.5-5.0); Anion Gap 23 mmol/L (10-20); BUN (Urea Nitrogen) 95 mg/dL (8.9-20.6); BUN/Creatinine Ratio 5.45; Calc. Creatinine Clearance 9 mL/min (70-130); Calcium 7.5 mg/dL (7.8-10.44); Carbon Dioxide 23 mmol/L (22-29); Chloride 99 mmol/L (98-107); Estimated GFR-MDRD 3; Glucose 106 mg/dL (70-105); Potassium 4.2 mmol/L (3.5-5.1); Sodium 141 mmol/L (136-145)
[2019-02-23 06:41] LABS: Phosphorus 11.9 mg/dL (2.3-4.7)
--- NOTE | 2019-02-23 07:23 | CON ---
DATE OF CONSULTATION: 02/21/2019 SERVICE: Nephrology. REQUESTING PHYSICIAN: Darrell Hernandez MD REASON FOR CONSULTATION: End-stage renal disease management. HISTORY OF PRESENT ILLNESS: A 29-year-old male patient with known history of end-stage renal disease from IgA nephropathy, on peritoneal dialysis, recent MSSA endocarditis who completed antibiotic therapy on February 19, who was admitted due to acute onset of mental status changes, slurred speech, aphasia, and right arm weakness associated with involuntary movements. Further evaluation with CT scan revealed subdural hemorrhage. The patient also was found to have uncontrolled high blood pressure, hence was admitted to the hospital for further evaluation and treatment. During my visitation, the patient had recurrent episodes of facial twitching as well as involuntary movement of right upper extremity associated with aphasia. The patient normally dialyzes at [facility]. He denied fever, nausea, or vomiting, but admitted to headache. Denied chest pain. He also reported he has gained some weight and has bilateral leg edema. Dry weight is said to be around 214 pounds, but currently weighs around 225 to 230. There is no history of shortness of breath. The patient reportedly was driving from [place] to [place] when he suddenly developed the symptom and had to pull in a gas station and subsequently called his parent who took him to the hospital. PAST MEDICAL HISTORY: 1. End-stage renal disease, on PD. 2. IgA nephropathy. 3. Peritoneal dialysis. 4. 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 5. Hypertension. PAST SURGICAL HISTORY: 1. PD catheter placement. 2. Tunneled dialysis catheter placement, status post removal, due to MSSA. FAMILY HISTORY: Reviewed and noncontributory. SOCIAL HISTORY: Never smoker. Denied alcohol or recreational drug use. PHYSICAL EXAMINATION: VITAL SIGNS: Temperature 98.6, pulse 91, respiratory rate 15, SpO2 of 94% on room air, blood pressure is 141/84. GENERAL: Young male, in no obvious distress. Afebrile. Anicteric. Acyanotic. HEENT: Normocephalic, atraumatic. Oral mucosa is moist. CARDIOVASCULAR: Regular rhythm and rate with no obvious murmur. RESPIRATORY: Good air entry bilaterally with no obvious crackle or rhonchi or use of accessory muscles. GI: Full, soft, nontender, nondistended with normal bowel sounds. EXTREMITIES: Grossly normal looking, atraumatic with no erythema. Bilateral leg edema noted. DIAGNOSTIC DATA: CBC showed WBC count of 6.7, hemoglobin of 9.6, MCV of 94, and platelet of 152. Coagulation panel showed PT 15.1, INR 1.2, and PTT 32.9. CMP showed sodium 142, potassium 5.0, chloride 99, CO2 of 22, BUN 112, creatinine 18.6, glucose 86, calcium 7.6. Total bilirubin 0.4, AST 8, ALT 7, alkaline phosphatase 53, total protein 6.5, albumin 3.1, and globulin 3.4. Lipid panel showed triglyceride 73, cholesterol 156, LDL 99, and HDL 42. Chest x-ray showed right lower lobe pneumonia with adjacent pleural effusion. This conclusion, however, was based on the further there is right lung opacity, which likely represents an infiltrate. However, given history of end-stage renal disease on dialysis and leg edema, this could well be pleural effusion with pulmonary congestion. CT scan of the brain showed small acute left frontal subdural hematoma with mild diffuse cerebral edema. MRI of the brain without contrast showed acute left subdural hemorrhage measuring approximately 6 mm in its greatest volume along the left posterior occipital convexity. There is associated left parietooccipital cerebral edema. ASSESSMENT: 1. End-stage renal disease, on peritoneal dialysis. Markedly elevated uremia is suggestive of inadequate dialysis treatment. This may also be contributory to this subdural hemorrhage due to interaction with antiplatelet and anticoagulation. Attempt at transitioning the patient to hemodialysis when he developed a PD catheter malfunction related to catheter-associated infection. Ideally, this patient should be on hemodialysis in a short while to clean out uremic toxins; however, we will try to optimize PD treatment and see how the patient improves. 2. Uncontrolled hypertension: Related to volume overload. 3. Subdural hematoma: There is no history of trauma. This may be related to uremic induced coagulopathy. 4. Methicillin-susceptible Staphylococcus aureus bacteremia and endocarditis, status post treatment with Ancef. The patient completed antibiotic therapy on February 19. 5. Volume overload. 6. Marked azotemia. 7. Seizure disorder: Most likely related to subdural hematoma, however uremia may be contributing. PLAN: 1. We will adjust antihypertensives to get better BP control. 2. We will also dialyze the patient within PD and with a view to escalating dose if needed to get better clearance. However, if PD does not work, we will resort to hemodialysis in the short while. 3. We will recheck renal function tests in the morning. 4. Further treatment as per Neurosurgery, Neurology, and semiconductor lab technician. 5. Keppra dose should be adjusted renally as the patient is on PD. Many thanks for involving us in the care of this patient. We will follow along with you. Job ID: [id number]
[2019-02-23] MEDS: Sevelamer Carbonate 800 MG TAB PO SCH ×3 (08:59→17:33)
[2019-02-23] MEDS: Docusate 100 MG CAP PO SCH ×2 (09:00→21:28)
[2019-02-23] MEDS: Calcium Acetate 667 MG CAP PO SCH ×3 (09:00→17:33)
[2019-02-23] MEDS ORDERED: NIFEdipine XL 90 MG TAB PO SCH (09:00)
[2019-02-23] MEDS: hydrALAZINE 25 MG TAB PO SCH ×3 (09:00→20:25)
[2019-02-23] MEDS: Calcium Carbonate 600 MG TAB PO SCH (09:00)
[2019-02-23] MEDS ORDERED: Ergocalciferol 1.25 MG(50,000 UNITS) CAP PO SCH (09:00)
[2019-02-23] MEDS: NIFEdipine XL 60 MG TAB PO SCH ×2 (09:02→18:37)
[2019-02-23] MEDS: Tamsulosin HCl 0.4 MG CAP PO SCH (09:02)
[2019-02-23] MEDS: Montelukast Sodium 10 mg Tablet PO SCH (09:02)
[2019-02-23] MEDS: Acetaminophen 325 MG TAB PO PRN (09:03)
[2019-02-23] MEDS: Polyethylene Glycol 3350 17 GM Packet PO SCH (09:05)
[2019-02-23] MEDS: Sodium Bicarbonate Tab 325 MG TAB PO SCH ×2 (09:10→21:32)
--- NOTE | 2019-02-23 11:25 | PDOC.HOSPP ---
- Subjective Encounter Date: 02/23/19 Encounter Time: 11:15 Subjective: Patient seen and examined. c/o headache, getting EEG, No overnight events - Objective Vital Signs & Weight: Vital Signs (12 hours) Pulse BP Pulse Ox 02/23/19 10:02 79 185/114 H 02/23/19 09:02 79 165/113 H 02/23/19 09:00 82 165/113 H 02/23/19 08:59 97 166/111 H 02/23/19 08:00 94 L 02/23/19 06:02 171/112 H 02/23/19 05:47 173/112 H 02/23/19 04:28 181/106 H 02/23/19 03:59 180/103 H 02/23/19 03:34 181/116 H 02/23/19 03:20 186/117 H 02/23/19 03:03 178/112 H 02/23/19 02:47 171/116 H 02/23/19 02:27 176/111 H 02/23/19 01:13 173/102 H 02/23/19 00:23 170/117 H Weight Admit Weight 229 lb 4.492 oz Weight 229 lb 4.492 oz Most Recent Monitor Data Heart Rate from ECG 75 NIBP 162/110 NIBP BP-Mean 127 Respiration from ECG 15 SpO2 94 I&O: 02/22/19 02/23/19 02/24/19 06:59 06:59 06:59 Intake Total 630 470 Output Total 450 0 Balance 180 470 0 Result Diagrams: 02/23/19 05:57 02/23/19 05:57 EKG Reviewed by me: Yes Hospitalist ROS - Review of Systems Constitutional: denies: fever, chills, sweats, weakness, malaise, other ENT: denies: ear pain, ear discharge, nose pain, nose discharge, nose congestion , mouth pain, mouth swelling, throat pain, throat swelling, other Respiratory: denies: cough, dry, shortness of breath, hemoptysis, SOB with excertion, pleuritic pain, sputum, wheezing, other Cardiovascular: denies: chest pain, palpitations, orthopnea, paroxysmal noc. dyspnea, edema, light headedness, other Gastrointestinal: denies: nausea, vomiting, abdominal pain, diarrhea, constipation, melena, hematochezia, other Genitourinary: denies: dysuria, frequency, incontinence, hematuria, retention, other Musculoskeletal: denies: neck pain, shoulder pain, arm pain, back pain, hand pain, leg pain, foot pain, other - Medication Medications: Active Medications Generic Name Dose Route Start Last Admin Trade Name Freq PRN Reason Stop Dose Admin Alprazolam 0.25 mg 02/21/19 07:10 02/22/19 20:53 Xanax PO 0.25 mg TID PRN Administration Anxiety Atorvastatin Calcium 40 mg 02/21/19 21:00 02/22/19 20:54 Lipitor PO 40 mg HS MIO Administration Calcium Acetate 1,334 mg 02/22/19 08:00 02/23/19 09:00 Phoslo PO Not Given TID-WM MIO Calcium Carbonate 600 mg 02/21/19 09:00 02/23/19 09:00 Caltrate PO 600 mg DAILY MIO Administration Clonidine 0.2 mg 02/23/19 04:04 02/23/19 04:28 Catapres PO 0.2 mg BIDPRN PRN Administration SBP > 150 Docusate Sodium 100 mg 02/21/19 09:00 02/23/19 09:00 Colace PO Not Given BID MIO Ergocalciferol 1.25 mg 02/23/19 09:00 02/23/19 09:10 Drisdol PO 1.25 mg Q7DAYS MIO Administration Hydralazine HCl 20 mg 02/21/19 12:24 02/23/19 05:47 Apresoline SLOW IVP 20 mg Q15MIN PRN Administration Sbp Greater Than 150 Hydralazine HCl 100 mg 02/23/19 05:48 02/23/19 09:00 Apresoline PO 100 mg TID MIO Administration Levetiracetam 500 mg/ Device 100 mls @ 200 mls/hr 02/22/19 09:00 02/22/19 09: 14 IVPB 100 mls DAILY MIO Administration Labetalol HCl 20 mg 02/21/19 12:24 02/23/19 10:02 Normodyne SLOW IVP 20 mg Q15MIN PRN Administration Sbp Greater Than 150 Labetalol HCl 100 mg 02/23/19 09:00 02/23/19 08:59 Normodyne PO 100 mg BID MIO Administration Lactulose 10 gm 02/21/19 09:00 02/23/19 08:58 Lactulose PO Not Given DAILY MIO Montelukast Sodium 10 mg 02/21/19 09:00 02/23/19 09:02 Singulair PO 10 mg DAILY MIO Administration Nifedipine 60 mg 02/23/19 09:00 02/23/19 09:02 Procardia Xl PO 60 mg BID MIO Administration Polyethylene Glycol 17 gm 02/21/19 09:00 02/23/19 09:05 Miralax PO Not Given DAILY MIO Sertraline HCl 100 mg 02/21/19 09:00 02/23/19 09:02 Zoloft PO 100 mg DAILY MIO Administration Sevelamer Carbonate 1,600 mg 02/23/19 08:00 02/23/19 08:59 Renvela PO Not Given TID-WM MIO Sodium Bicarbonate 650 mg 02/21/19 09:00 02/23/19 09:10 Bicarbonate, Sodium PO 650 mg BID MIO Administration Tamsulosin HCl 0.8 mg 02/21/19 09:00 02/23/19 09:02 Flomax PO Not Given DAILY MIO - Exam General Appearance: NAD, awake alert Eye: PERRL, anicteric sclera ENT: normocephalic atraumatic, no oropharyngeal lesions Neck: supple, symmetric, no JVD Heart: RRR, no murmur, no gallops, no rubs Respiratory: CTAB, no wheezes, no rales, no ronchi Gastrointestinal: soft, non-tender, non-distended, normal bowel sounds Gastrointestinal - other findings: PD catheter+ Extremities: no cyanosis, no clubbing Skin: normal turgor, no lesions Neurological: no focal deficits Musculoskeletal: normal tone, normal strength Psychiatric: normal affect, normal behavior Hosp A/P (1) Encephalopathy acute Code(s): G93.40 - ENCEPHALOPATHY, UNSPECIFIED Status: Resolved (2) Focal seizures Status: Acute (3) Subdural hematoma Code(s): S06.5X9A - TRAUM SUBDR HEM W LOC OF UNSP DURATION, INIT Status: Acute (4) Cerebral edema Code(s): G93.6 - CEREBRAL EDEMA Status: Acute (5) ESRD on peritoneal dialysis Code(s): N18.6 - END STAGE RENAL DISEASE; Z99.2 - DEPENDENCE ON RENAL DIALYSIS Status: Chronic (6) IgM nephropathy Code(s): N05.8 - UNSP NEPHRITIC SYNDROME WITH OTHER MORPHOLOGIC CHANGES Status : Chronic (7) H/O endocarditis Code(s): Z86.79 - PERSONAL HISTORY OF OTHER DISEASES OF THE CIRCULATORY SYSTEM Status: Chronic (8) Anemia of renal disease Code(s): N18.9 - CHRONIC KIDNEY DISEASE, UNSPECIFIED; D63.1 - ANEMIA IN CHRONIC KIDNEY DISEASE Status: Chronic (9) Secondary hyperparathyroidism of renal origin Code(s): N25.81 - SECONDARY HYPERPARATHYROIDISM OF RENAL ORIGIN Status: Chronic (10) Anxiety and depression Code(s): F41.9 - ANXIETY DISORDER, UNSPECIFIED; F32.9 - MAJOR DEPRESSIVE DISORDER, SINGLE EPISODE, UNSPECIFIED Status: Chronic - Plan old records reviewed/req 02/21/19 neurology and neurosurgery consulted nephrology consulted his home medication reconciled updated with father medication reviewed and continue to provide supportive care DC antibiotic for now get echo follow on culture result will get eeg 02/22/19 transfer to stroke floor neurology and neurosurgery recommendation noted overall stable continue PD as per nephrology jose galloway 02/23 nephrology to decide about PD so far culture negative continue keppra echo result pending medication reviewed and continue supportive care
[2019-02-23] MEDS ORDERED: Sodium Chloride 0.45% 1,000 ML IV SCH (14:30)
--- NOTE | 2019-02-23 14:51 | PRG ---
DATE OF SERVICE: 02/23/2019 SERVICE: Pulmonary Medicine. INTERVAL HISTORY: The patient is doing fine from respiratory standpoint. Denies any current chest discomfort, nausea, or vomiting. There are no significant overnight events. His blood pressures were a little bit elevated and required a couple doses of p.r.n. blood pressure medication. Otherwise, he still lacks sensation to his hand. He has good movement, however. PHYSICAL EXAMINATION: VITAL SIGNS: Afebrile, pulse 79, blood pressure 162/110, respirations 11, and saturation 100% on room air. GENERAL: The patient is awake and alert, in no apparent distress. LUNGS: Decent air entry. No prolonged expiratory phase or wheezing is appreciated. I do not appreciate any crackling. HEART: Normal rate and regular. ABDOMEN: Soft, nontender, and nondistended. Bowel sounds are positive. MUSCULOSKELETAL: No cyanosis or clubbing. There is no pitting edema. If anything, he has a little skin tenting. LABORATORY DATA: WBC 5.6, hemoglobin 8.4, platelets 155,000. INR 1.2. BUN 95 and gently downtrending, creatinine 17.44 also barely changed. Phosphorus 11.9 and downtrending, calcium 7.5. Albumin 2.9 and PTH 365. Peritoneal fluid has very few neutrophils present. Cultures remain negative to date. ASSESSMENT: 1. Subdural hematoma. 2. End-stage renal disease secondary to IgA nephropathy. 3. Abnormal chest x-ray. 4. Azotemia secondary to peritoneal dialysis. DISCUSSION AND PLAN: The patient is doing fine from respiratory standpoint. He remains stable for transition out of the ICU to the stroke unit. Once he is off continuous peritoneal dialysis, we will repeat a chest x-ray. If there are significant abnormalities there, CT of the chest may be considered. Blood pressure medications will be titrated through time. Job ID: [id number]
--- NOTE | 2019-02-23 15:23 | RAD ---
XR Chest Pa Lat STANDARD History: Abnormal 1 view chest x-ray Comparison: Radiograph February 20, 2019 Findings: Similar appearance of the peripheral right lung opacity with thickening of the minor fissur e concerning for loculated effusion. Likely component of atelectasis in the right lower lobe. Left lung is clear. Impression: Relatively similar appearance of the peripheral opacity right lung could may reflect a lo culated effusion given patient age. Nonemergent follow-up chest CT with contrast recommended.
[2019-02-23] MEDS: Atorvastatin Calcium 40 MG TAB PO SCH (20:24)
[2019-02-23] MEDS: Labetalol 100 MG TAB PO SCH (20:24)
[2019-02-23] MEDS ORDERED: Morphine 2 MG/ML SYRINGE SLOW IVP SCH (21:00)
--- NOTE | 2019-02-23 21:51 | PRG ---
DATE OF SERVICE: 02/23/2019 SERVICE: Nephrology. SUBJECTIVE: A 29-year-old male with known history of end-stage renal disease due to IgA nephropathy, on peritoneal dialysis admitted due to acute onset of slurred speech and right arm weakness. The patient was found to have a subdural hematoma associated with seizure. The patient also was found to have marked azotemia, which was felt to be due to inadequate peritoneal dialysis treatment and had continued dialysis yesterday with improvement in general condition. Blood pressure, however, remained suboptimally controlled. The patient continued to complain of headache. OBJECTIVE: VITAL SIGNS: Temperature 98.5, pulse 78, respiratory rate 10, SpO2 of 95% on room air, blood pressure is 152/118. GENERAL: Young male, in mild painful distress. Afebrile. Anicteric. Acyanotic. HEENT: Normocephalic, atraumatic. Oral mucosa is moist. CARDIOVASCULAR: Regular rhythm and rate with normal heart sounds 1 and 2. RESPIRATORY: Fair air entry bilaterally with no obvious crackle or rhonchi or use of accessory muscles. GI: Full, soft, nontender, nondistended with normal bowel sounds. PD catheter noted. EXTREMITIES: Mild right elbow edema noted. Other extremities are grossly normal looking and atraumatic with no obvious edema or erythema. PERMASTONE INSTALLER: Conscious and alert and oriented x3 with appropriate mental status. Cranial nerves 2 through 12 are grossly intact. The patient moves all extremities. DIAGNOSTIC DATA: CBC showed WBC count of 5.6, hemoglobin of 8.4, MCV of 93.7, platelets of 155. Renal function panel showed sodium 141, potassium 4.2, chloride 99, CO2 of 23, BUN 95, creatinine 17.44, glucose 106, calcium 7.5, phosphorus 11.9, albumin 2.9. PTH intact is 365.7. 25-hydroxy vitamin D is 14.9. ASSESSMENT: 1. End-stage renal disease, on peritoneal dialysis. 2. IgA nephropathy. 3. Marked azotemia: Due to inadequate peritoneal dialysis treatment. Numbers improved with 24 hour continuous peritoneal dialysis. 4. Volume overload: Improved with peritoneal dialysis with ultrafiltration. 5. Uncontrolled hypertension. The patient is having headache and may be driving the hypertension. 6. Subdural hematoma with headache. 7. Seizure disorder: [place] to be related to subdural hematoma and cerebral edema. PLAN: 1. We will increase dialysis treatment to 6 exchanges starting from today. 2. We will substitute metoprolol with labetalol with a view to increasing dose to get adequate BP control. 3. We will also increase hydralazine from 75 mg p.o. t.i.d. to 100 mg p.o. t.i.d. 4. We will also increase nicardipine from 90 mg daily to 60 mg b.i.d. 5. We will provide adequate analgesic for headache with a view to getting adequate BP control. 6. We will start the patient on vitamin D supplementation. 7. We will also start the patient on erythrocyte stimulating agent. 8. Further treatment as per gallery or museum attendant and primary attending and Neurosurgery. Job ID: [id number]
[2019-02-24] MEDS: cloNIDine 0.2 MG TAB PO PRN (01:32)
[2019-02-24] MEDS: Labetalol HCl 100 MG/20 ML VIAL SLOW IVP PRN (03:17)
[2019-02-24 04:44] LABS: Albumin 2.8 g/dL (3.5-5.0); Anion Gap 21 mmol/L (10-20); BUN (Urea Nitrogen) 84 mg/dL (8.9-20.6); BUN/Creatinine Ratio 5.01; Calc. Creatinine Clearance 9 mL/min (70-130); Calcium 7.6 mg/dL (7.8-10.44); Carbon Dioxide 24 mmol/L (22-29); Chloride 98 mmol/L (98-107); Estimated GFR-MDRD 3; Glucose 98 mg/dL (70-105); Sodium 139 mmol/L (136-145)
[2019-02-24 04:58] LABS: Phosphorus 11.3 mg/dL (2.3-4.7)
[2019-02-24] MEDS ORDERED: Losartan 25 MG TAB PO SCH ×2 (09:00→12:45)
[2019-02-24] MEDS: Sodium Bicarbonate Tab 325 MG TAB PO SCH (09:30)
[2019-02-24] MEDS: Montelukast Sodium 10 mg Tablet PO SCH (09:30)
[2019-02-24] MEDS: NIFEdipine XL 60 MG TAB PO SCH (09:31)
[2019-02-24] MEDS: Acetaminophen 325 MG TAB PO PRN (09:34)
[2019-02-24] MEDS: Labetalol 100 MG TAB PO SCH (09:34)
--- NOTE | 2019-02-24 09:37 | EEG ---
Referring Physician: JEAN EEG # [ [id number] TEST TYPE: ROUTINE PORTABLE INPATIENT REPORT: AN EEG USING THE INTERNATIONAL TEN-TWENTY SYSTEM OF ELECTRODE PLACEMENT WAS PERFORMED. The waking background is a medium amplitude 8 hertz alpha frequency. The patient remained awake throughout the study. Photic stimulation was unremarkable. No epileptiform features were seen. IMPRESSION: THIS IS A NORMAL AWAKE EEG. 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
[2019-02-24] MEDS: hydrALAZINE 25 MG TAB PO SCH ×2 (09:42→16:15)
[2019-02-24] MEDS: Sevelamer Carbonate 800 MG TAB PO SCH ×3 (09:45→16:16)
[2019-02-24] MEDS: Docusate 100 MG CAP PO SCH (09:45)
[2019-02-24] MEDS: Calcium Acetate 667 MG CAP PO SCH ×3 (09:45→16:16)
[2019-02-24] MEDS: Polyethylene Glycol 3350 17 GM Packet PO SCH (09:45)
[2019-02-24] MEDS: Tamsulosin HCl 0.4 MG CAP PO SCH (09:46)
--- NOTE | 2019-02-24 11:36 | PDOC.HOSPP ---
- Subjective Encounter Date: 02/24/19 Encounter Time: 11:00 Subjective: Patient seen and examined. No new complaints. No overnight events - Objective Vital Signs & Weight: Vital Signs (12 hours) Temp Pulse BP Pulse Ox 02/24/19 09:42 86 155/108 H 02/24/19 09:34 84 155/104 H 02/24/19 09:31 96 155/108 H 02/24/19 08:00 98.4 F 98 02/24/19 04:00 98.5 F 02/24/19 03:17 79 177/116 H 02/24/19 01:32 172/112 H 02/24/19 00:00 99.1 F Weight Admit Weight 229 lb 4.492 oz Weight 225 lb 15.581 oz Most Recent Monitor Data Heart Rate from ECG 86 NIBP 155/105 NIBP BP-Mean 121 Respiration from ECG 21 SpO2 94 I&O: 02/23/19 02/24/19 02/25/19 06:59 06:59 06:59 Intake Total 470 530 225 Output Total 0 0 Balance 470 530 225 Result Diagrams: 02/23/19 05:57 02/24/19 03:15 EKG Reviewed by me: Yes Hospitalist ROS - Review of Systems ENT: denies: ear pain, ear discharge, nose pain, nose discharge, nose congestion , mouth pain, mouth swelling, throat pain, throat swelling, other Respiratory: denies: cough, dry, shortness of breath, hemoptysis, SOB with excertion, pleuritic pain, sputum, wheezing, other Cardiovascular: denies: chest pain, palpitations, orthopnea, paroxysmal noc. dyspnea, edema, light headedness, other Gastrointestinal: denies: nausea, vomiting, abdominal pain, diarrhea, constipation, melena, hematochezia, other Genitourinary: denies: dysuria, frequency, incontinence, hematuria, retention, other Musculoskeletal: denies: neck pain, shoulder pain, arm pain, back pain, hand pain, leg pain, foot pain, other - Medication Medications: Active Medications Generic Name Dose Route Start Last Admin Trade Name Freq PRN Reason Stop Dose Admin Acetaminophen 650 mg 02/21/19 03:25 02/24/19 09:34 Tylenol PO 650 mg Q4H PRN Administration Headache/Fever or Pain Alprazolam 0.25 mg 02/21/19 07:10 02/22/19 20:53 Xanax PO 0.25 mg TID PRN Administration Anxiety Atorvastatin Calcium 40 mg 02/21/19 21:00 02/23/19 20:24 Lipitor PO 40 mg HS MIO Administration Calcium Acetate 1,334 mg 02/22/19 08:00 02/24/19 09:45 Phoslo PO Not Given TID-WM MIO Clonidine 0.2 mg 02/23/19 04:04 02/24/19 01:32 Catapres PO 0.2 mg BIDPRN PRN Administration SBP > 150 Docusate Sodium 100 mg 02/21/19 09:00 02/24/19 09:45 Colace PO Not Given BID MIO Ergocalciferol 1.25 mg 02/23/19 09:00 02/23/19 09:10 Drisdol PO 1.25 mg Q7DAYS MIO Administration Hydralazine HCl 20 mg 02/21/19 12:24 02/23/19 11:24 Apresoline SLOW IVP 20 mg Q15MIN PRN Administration Sbp Greater Than 150 Hydralazine HCl 100 mg 02/23/19 05:48 02/24/19 09:42 Apresoline PO 100 mg TID MIO Administration Levetiracetam 500 mg/ Device 100 mls @ 200 mls/hr 02/22/19 09:00 02/24/19 09: 47 IVPB 100 mls DAILY MIO Administration Labetalol HCl 20 mg 02/21/19 12:24 02/24/19 03:17 Normodyne SLOW IVP 20 mg Q15MIN PRN Administration Sbp Greater Than 150 Labetalol HCl 200 mg 02/23/19 21:00 02/24/19 09:34 Normodyne PO 200 mg BID MIO Administration Lactulose 10 gm 02/21/19 09:00 02/24/19 09:45 Lactulose PO Not Given DAILY MIO Losartan Potassium 50 mg 02/24/19 09:00 02/24/19 09:30 Cozaar PO 50 mg DAILY MIO Administration Montelukast Sodium 10 mg 02/21/19 09:00 02/24/19 09:30 Singulair PO 10 mg DAILY MIO Administration Nifedipine 60 mg 02/23/19 09:00 02/24/19 09:31 Procardia Xl PO 60 mg BID MIO Administration Polyethylene Glycol 17 gm 02/21/19 09:00 02/24/19 09:45 Miralax PO Not Given DAILY MIO Sertraline HCl 100 mg 02/21/19 09:00 02/24/19 09:30 Zoloft PO 100 mg DAILY MIO Administration Sevelamer Carbonate 1,600 mg 02/23/19 08:00 02/24/19 09:45 Renvela PO Not Given TID-WM MIO Sodium Bicarbonate 650 mg 02/21/19 09:00 02/24/19 09:30 Bicarbonate, Sodium PO 650 mg BID MIO Administration Tamsulosin HCl 0.8 mg 02/21/19 09:00 02/24/19 09:46 Flomax PO Not Given DAILY MIO - Exam General Appearance: NAD, awake alert Eye: PERRL, anicteric sclera ENT: normocephalic atraumatic, no oropharyngeal lesions Neck: supple, symmetric, no JVD Heart: RRR, no murmur, no gallops Respiratory: CTAB, no wheezes, no rales Gastrointestinal: soft, non-tender, non-distended Extremities: no cyanosis, no clubbing Skin: normal turgor, no lesions Neurological: no focal deficits Musculoskeletal: normal tone, normal strength Psychiatric: normal affect, normal behavior Hosp A/P (1) Encephalopathy acute Code(s): G93.40 - ENCEPHALOPATHY, UNSPECIFIED Status: Resolved (2) Focal seizures Status: Acute (3) Subdural hematoma Code(s): S06.5X9A - TRAUM SUBDR HEM W LOC OF UNSP DURATION, INIT Status: Acute (4) Cerebral edema Code(s): G93.6 - CEREBRAL EDEMA Status: Acute (5) ESRD on peritoneal dialysis Code(s): N18.6 - END STAGE RENAL DISEASE; Z99.2 - DEPENDENCE ON RENAL DIALYSIS Status: Chronic (6) IgM nephropathy Code(s): N05.8 - UNSP NEPHRITIC SYNDROME WITH OTHER MORPHOLOGIC CHANGES Status : Chronic (7) H/O endocarditis Code(s): Z86.79 - PERSONAL HISTORY OF OTHER DISEASES OF THE CIRCULATORY SYSTEM Status: Chronic (8) Anemia of renal disease Code(s): N18.9 - CHRONIC KIDNEY DISEASE, UNSPECIFIED; D63.1 - ANEMIA IN CHRONIC KIDNEY DISEASE Status: Chronic (9) Secondary hyperparathyroidism of renal origin Code(s): N25.81 - SECONDARY HYPERPARATHYROIDISM OF RENAL ORIGIN Status: Chronic (10) Anxiety and depression Code(s): F41.9 - ANXIETY DISORDER, UNSPECIFIED; F32.9 - MAJOR DEPRESSIVE DISORDER, SINGLE EPISODE, UNSPECIFIED Status: Chronic - Plan old records reviewed/req, plan discussed w/ family 02/21/19 neurology and neurosurgery consulted nephrology consulted his home medication reconciled updated with father medication reviewed and continue to provide supportive care DC antibiotic for now get echo follow on culture result will get eeg 02/22/19 transfer to stroke floor neurology and neurosurgery recommendation noted overall stable continue PD as per nephrology add laverne 02/23 nephrology to decide about PD so far culture negative continue keppra echo result pending medication reviewed and continue supportive care 02/24/19 EEG normal BP now better controlled overall stable continue PD possible discharge soon
[2019-02-24 12:25] VITALS: TEMP 98.2
--- NOTE | 2019-02-24 14:29 | DIS ---
DATE OF ADMISSION: 02/21/2019 DATE OF DISCHARGE: 02/24/2019 PRIMARY CARE PHYSICIAN: [facility] Call admission. DISCHARGE DISPOSITION: Home. PRIMARY DISCHARGE DIAGNOSES: 1. Focal seizure due to possibly from cerebral edema and subdural hematoma. Acute metabolic encephalopathy. SECONDARY DISCHARGE DIAGNOSES: End-stage renal disease, on peritoneal dialysis. IgM nephropathy, anemia of renal disease, secondary hyperparathyroidism of renal origin, history of endocarditis, anxiety and depression. PRIMARY PROCEDURE/OPERATION: Peritoneal dialysis. RADIOLOGICAL INVESTIGATION: CT brain on admission showed small acute left frontal subdural hematoma with mild diffuse cerebral edema. MRI brain confirmed that finding. Chest x-ray was unremarkable. Repeat chest x-ray showed similar finding in the right lung. EEG normal. SIGNIFICANT LABORATORY DATA: WBC 5.6, hemoglobin 8.4, platelets 155. INR 1.2, sodium 139, creatinine 16.77, phosphorus 11.3, albumin 2.8, vitamin D 14.9, PTH 365.7. Peritoneal fluid negative for infection. Blood culture negative. DISCHARGE MEDICATIONS: 1. Alprazolam 0.25 mg p.o. t.i.d. p.r.n. 2. PhosLo 667 mg three tablets daily. 3. Catapres 0.1 mg t.i.d. p.r.n. 4. Colace 100 mg p.o. b.i.d. 5. Vitamin D2 of 50,000 units every week. 6. Lasix 80 mg b.i.d. 7. Hydralazine 100 mg t.i.d. 8. Lactulose 15 mL p.o. daily. 9. Claritin 10 mg as needed. 10. Singulair 10 mg daily. 11. MiraLAX 17 g p.o. daily. 12. Zoloft 100 mg daily. 13. Sodium bicarbonate 650 mg p.o. b.i.d. 14. Flomax 0.8 mg daily. 15. Lipitor 40 mg p.o. at bedtime. 16. Ferrous sulfate 325 mg daily. 17. Nephro-Daphney one tablet daily. 18. Labetalol 200 mg p.o. b.i.d. 19. Keppra 500 mg daily. 20. Losartan 100 mg daily. 21. Procardia XL 60 mg b.i.d. 22. Renvela 1600 mg p.o. t.i.d. CONTRAINDICATION: None. CODE STATUS: Full code. INPATIENT CLOTHING SORTER: Neurology was consulted for seizure. Neurosurgeon was consulted for subdural hematoma. Nephrology was consulted for ESRD. Pulmonary was following in ICU. TEST RESULTS PENDING ON DISCHARGE: None. ALLERGIES: IODINE, PENICILLIN, AND SULFA. DISCHARGE PLAN: Posthospital, the patient will follow up with his Nephrology. The patient will follow up with Neurology and Neurosurgery and Pulmonology as instructed. HOSPITAL COURSE: A 29-year-old male, who was admitted by Dr. Hernandez, please see his H and P for further details. The patient was having encephalopathy and focal seizure. His CT brain on admission showed focal subdural hematoma and mild diffuse cerebral edema. He was treated with Keppra. He did not have any further seizure. We did MRI, which confirmed small subdural hematoma, which was spontaneous without any trauma. Neurosurgery recommended that the patient does not need any surgical intervention and they recommended outpatient followup. Neurology was agreed with Saira. Nephrology was managing peritoneal dialysis. His blood pressure medication was adjusted as above and better controlled. Pulmonary and Critical Care was following while in hospital. At this point, the patient's blood culture remained as negative. He does not have any further seizure. He is ambulatory, tolerating p.o. well and all consultants cleared him for discharge. The patient is medically stable for discharge today. The patient is seen and examined at bedside today. Please see my progress note from today as well. Job ID: [id number]
--- NOTE | 2019-02-24 15:51 | PRG ---
DATE OF SERVICE: 02/24/2019 SERVICE: Nephrology. SUBJECTIVE: A 29-year-old male admitted due to acute mental status change of slurred speech and right-sided upper limb weakness. Nephrology is following the patient for end-stage renal disease management. The patient was found to have marked azotemia, hence was treated with continuous peritoneal dialysis with improvement in azotemia and general condition. He is feeling a lot better. He, however, continued to complain of headache. Of note, the patient was found to have subdural hematoma. He also was started on Keppra for seizure. OBJECTIVE: VITAL SIGNS: Temperature 98.2, pulse 84, respiratory rate 13, SpO2 of 96% on room air, and blood pressure is 155/108. GENERAL: Young male, in no obvious distress. Afebrile. Anicteric. Acyanotic. HEENT: Normocephalic and atraumatic. Oral mucosa is moist. CARDIOVASCULAR: Regular rhythm and rate. Normal heart sounds 1 and 2. RESPIRATORY: Good air entry bilaterally with no crackle or rhonchi or use of accessory muscles. GI: Full, soft, nontender, and nondistended with normal bowel sounds. PD catheter noted. EXTREMITIES: Grossly normal looking atraumatic with no edema or erythema. BOILER MAKER: Conscious, alert, and oriented x3 with appropriate mental status. The patient is moving all extremities. DIAGNOSTIC DATA: Renal function panel showed sodium 139, potassium 4.0, chloride 98, CO2 of 24, BUN 84, creatinine 16.77, glucose 98, calcium 7.6, phosphorus 11.3, and albumin 2.8. Of note, BUN has gone down from 125 to 84. ASSESSMENT: 1. End-stage renal disease with marked azotemia. The patient is on peritoneal dialysis. PD dose was increased due to marked azotemia from inadequate treatment. 2. Marked azotemia with possibly uremic symptoms. 3. Possible uremic coagulopathy. 4. Subdural hematoma. Etiology is unclear, there was no trauma. Uremic encephalopathy may be contributory. 5. Volume overload: Resolved with peritoneal dialysis with ultrafiltration. 6. Headaches: [place] to be related to subdural hematoma and uncontrolled hypertension. 7. Hypertension: Control is better, but still suboptimal. 8. Hyperphosphatemia. 9. Hypocalcemia. 10. Hypoalbuminemia. 11. Anemia in chronic kidney disease. 12. Seizure disorder related to subdural hematoma and cerebral edema, on Keppra. PLAN: We will add losartan to current antihypertensive regularly, which include labetalol 200 mg b.i.d., nifedipine 60 mg b.i.d., and hydralazine 100 mg t.i.d. If BP control is improved, the patient can be discharged from Nephrology point of view to follow up with regular manager spanish. Adequate analgesic for headache is recommended as this is felt to be driving hypertension. Many thanks for involving us in the care of this patient. The patient needs to follow up with the regular manager spanish as soon as possible for adjustment in dialysis treatment. Job ID: [id number]
[2019-02-24] MEDS: ALPRAZolam 0.25 MG TAB PO PRN (16:15)
[2019-02-24 16:17] VITALS: BP 155/110
--- NOTE | 2019-02-24 16:20 | OP ---
DATE OF PROCEDURE: 02/24/2019 PREOPERATIVE DIAGNOSIS: History of infected endocarditis with chronic indwelling Barclay catheter. POSTOPERATIVE DIAGNOSIS: History of infected endocarditis with chronic indwelling Barclay catheter. PROCEDURE PERFORMED: Removal of tunnelled subcutaneous intravenous catheter with cuff, but without port. ANESTHESIA: None. ESTIMATED BLOOD LOSS: Minimal. COMPLICATIONS: None. FINDINGS: The catheter was removed in its entirety including the cuff. DESCRIPTION OF PROCEDURE: The catheter was pulled. There was some initial discomfort at the exit site. However, the catheter was able to be pulled without any complication. The sutures had been removed by the nurse. The catheter with the cuff was removed in its entirety. The pressure was held on the neck as well as the exit site for 10 minutes. There was no ongoing bleeding. The area was covered with dry gauze and tape. The patient tolerated the procedure well. Job ID: [id number]
[2019-02-25] MEDS ORDERED: levETIRAcetam 500 MG TAB PO SCH (09:00)
[2019-02-25] MEDS ORDERED: Losartan 25 MG TAB PO SCH (09:00)
== END 2019-02-24 16:54 | disposition home or self-care (01) | DRG 64 ==
LOC: ERS 23:32 → CCU 02-21 02:56
PROVIDERS: ADMIT Internal Medicine; ATTEND Internal Medicine
PROC: 05PYX3Z Removal of Infusion Device from Upper Vein, External Approach (ICD-10-PCS; principal; 2019-02-24)
DX: I62.00 Nontraumatic subdural hemorrhage, unspecified (principal); N18.6 End stage renal disease; G93.6 Cerebral edema; G93.41 Metabolic encephalopathy; I12.0 Hypertensive chronic kidney disease with stage 5 chronic kidney disease or end stage renal disease; G40.109 Localization-related (focal) (partial) symptomatic epilepsy and epileptic syndromes with simple partial seizures, not intractable, without status epilepticus; I38 Endocarditis, valve unspecified; G81.91 Hemiplegia, unspecified affecting right dominant side; R40.2362 Coma scale, best motor response, obeys commands, at arrival to emergency department; R40.2142 Coma scale, eyes open, spontaneous, at arrival to emergency department; R40.2252 Coma scale, best verbal response, oriented, at arrival to emergency department; Z99.2 Dependence on renal dialysis; I16.0 Hypertensive urgency; R29.700 NIHSS score 0; Z88.0 Allergy status to penicillin; Z88.2 Allergy status to sulfonamides; Z91.040 Latex allergy status; Z91.041 Radiographic dye allergy status; F41.9 Anxiety disorder, unspecified; R47.01 Aphasia; E83.39 Other disorders of phosphorus metabolism; G83.21 Monoplegia of upper limb affecting right dominant side; E05.90 Thyrotoxicosis, unspecified without thyrotoxic crisis or storm
CPT/HCPCS: 36415; 36416; 70450; 70551; 71045; 71046; 80053; 80061; 80069; 82306; 82550; 82728; 83540; 83550; 83970; 84100; 84484; 85025; 85060; 85610; 85730; 87040; 87070; 87205; 89051; 93005; 95816; 95819; 96365; 99292; J0360; J0744; J1953; J2270; J2597; J3370; J7050